=== PATIENT | female | born 1975 | race Caucasian/White ===

== ENCOUNTER 2021-01-18 21:16 | Emergency (ER) | payer BC ==
[2021-01-18] MEDS ORDERED: Sodium Chloride 0.9% 1000 ML 1,000 ML IV STA (21:46)
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
[2021-01-18 22:03] LABS: Absolute Neutrophil Ct (ANC) 7.43 (1.4-6.9); BASOPHIL % 0.2 % (0.0-0.4); Basophil (Absolute #) 0.02 (0-0.4); Eosinophil % 1.3 % (0.00-5.0); Eosinophil (Absolute #) 0.14 (0-0.5); Hematocrit 38.6 % (35-47); Hemoglobin 12.4 gm/dl (12.0-16.0); Lymphocyte (Absolute #) 2.47 (1.0-4.6); Lymphocytes % 22.8 % (24.0-44.0); Mean Cell Volume 91.7 fl (78-100); Mean Corpuscular Hemoglobin 29.5 pg (26-32); Mean Corpuscular Hgb Concent. 32.1 g/dl (32-36); Mean Platelet Volume 9.7 fl (7.5-11.0); Monocyte (Absolute #) 0.75 (0.0-1.3); Monocytes % 6.9 % (0.0-12.0); Neutrophil % 68.8 % (36.0-66.0); Platelet Count 256 K/mm3 (150-450); Red Blood Count 4.21 M/mm3 (4.1-5.4); Red Cell Distribution Width 13.9 % (11.5-14.0); White Blood Count 10.8 K/mm3 (4.0-10.5)
[2021-01-18] MEDS ORDERED: Sodium Chloride 0.9% 1000 ML 1,000 ML ONE (22:06)
[2021-01-18 22:16] LABS: ALBUMIN 3.9 g/dL (3.5-5.0); ALKALINE PHOSPHATASE 74 U/L (38-126); ANION GAP 11.5 MEQ/L (5-15); BLOOD UREA NITROGEN 17 mg/dL (7-17); CHLORIDE 101 mmol/L (98-107); Calcium 9.1 mg/dL (8.4-10.2); Carbon Dioxide 28 mmol/L (22-30); Creatinine 1 0.97 mg/dL (0.52-1.04); EST GLOMERULAR FILTRATION RATE > 60.0 ML/MIN; Glucose 115 mg/dL (74-106); LIPASE 33 U/L (23-300); Potassium 3.6 mmol/L (3.5-5.1); SGOT/AST 20 U/L (14-36); SGPT/ALT 19 U/L (0-35); SODIUM 137 mmol/L (137-145)
[2021-01-18 23:48] LABS: Appearance SLIGHTLY CLOUDY (CLEAR); Bilirubin NEGATIVE (NEGATIVE); Blood LARGE Ery/ul (0-5); Epithelial Cells RARE /HPF (FEW); Glucose NEGATIVE (NEGATIVE); Ketones NEGATIVE (NEGATIVE); Leukocyte Esterase TRACE (NEGATIVE); Mucus SLIGHT /HPF (NEGATIVE); Nitrite NEGATIVE (NEGATIVE); Protein,Urine Dip NEGATIVE (Negative); Specific Gravity 1.018 (1.005-1.025); Urobilinogen NEGATIVE mg/dL (0-1); WBC 0-2 /HPF (0-5)
[2021-01-19 00:16] VITALS: BP 148/88; PULSE 87
[2021-01-19 00:25] VITALS: O2SAT 98
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
== END 2021-01-19 00:44 | disposition home or self-care (01) ==
LOC: ED 21:16
DX: K86.9 Disease of pancreas, unspecified (principal); S29.011A Strain of muscle and tendon of front wall of thorax, initial encounter; S39.001A Unspecified injury of muscle, fascia and tendon of abdomen, initial encounter; S60.051A Contusion of right little finger without damage to nail, initial encounter; M79.644 Pain in right finger(s); R07.89 Other chest pain; V48.5XXA Car driver injured in noncollision transport accident in traffic accident, initial encounter
CPT/HCPCS: 36000; 36415; 70450; 71260; 72125; 73140; 74177; 80053; 81001; 81025; 83690; 84484; 85025; 87086; 93005; 96360; 99285

== ENCOUNTER 2021-04-07 06:36 | Day surgery (SDC) | payer BC ==
[2021-04-07] MEDS ORDERED: Lactated Ringers 1,000 ML IV SCH (07:00)
[2021-04-07] MEDS ORDERED: CEFAZOLIN 2 GM-D5W BAG** 2 GM/50 ML ML IV SCH (07:00)
[2021-04-07] MEDS ORDERED: DIPRIVAN 200 MG/20 ML IV ONE (08:25)
[2021-04-07] MEDS ORDERED: SUBLIMAZE 100 MCG/2 ML ONE ×2 (08:25→09:30)
[2021-04-07] MEDS ORDERED: Versed 2 MG/2 ML Injection ONE (08:25)
[2021-04-07] MEDS ORDERED: Zofran 4 MG/2 ML VIAL ONE (08:25)
[2021-04-07] MEDS ORDERED: Decadron 4 MG INJ ONE (08:37)
[2021-04-07 10:37] VITALS: PULSE 84
[2021-04-07 10:51] VITALS: BP 160/80; O2SAT 96
--- NOTE | 2021-04-08 08:31 | OP ---
SURGERY DATE/TIME: 04/07/2021 0838 PREOPERATIVE DIAGNOSIS: Menorrhagia. POSTOPERATIVE DIAGNOSIS: Menorrhagia. PROCEDURE: Hysteroscopy D&C with NovaSure ablation. SURGEON: Yovani Mukherjee D.O. KNOBBER: Venancio Cisneros surgical scrub technician. ANESTHESIA: General. ESTIMATED BLOOD LOSS: Minimal. COMPLICATIONS: None. INDICATIONS: The risks, benefits, indications and alternatives of the procedure were reviewed with the patient prior to procedure. The patient understood the risk of infection, bleeding, bowel injury, bladder injury, ureteral injury, uterine perforation, pelvic infection associated with the surgery and desires to have this surgery as a possible means to alleviate her current medical condition. DESCRIPTION OF PROCEDURE AND FINDINGS: At this point the patient is taken to the operating room, given general sedation, placed in dorsal lithotomy position, prepped and draped in the usual sterile fashion. A weighted speculum is then placed in the patient's vagina and the anterior lip of the cervix is grasped with a single tooth tenaculum. Endocervical dilators were advanced through the endocervical canal as a means to dilate the cervix and the uterus sounded approximately 10 cm. From this point a 5 mm hysteroscope was then placed in through the endocervical canal where visualization of the endometrial cavity appeared to be within normal limits with no gross abnormalities that was noted. From this point the hysteroscope was then removed and a curette was then placed into the fundus of the uterus and curettage was performed in all quadrants of the uterus retrieving a moderate amount of tissue. From this point hemostasis was obtained. From this point the NovaSure was then grasped and taken through the endocervical canal where a length of 6.5 cm was measured and was taken to the fundus of the uterus and retracted approximately 1 cm where it was engaged with a width of 3.1 cm. After engagement the instrument was turned on for an ablative time of 56 seconds. After completion of the ablation the NovaSure was then disengaged and removed from the uterine cavity without complication. From this point all instruments were removed from the patient's vaginal region. The patient was then out of the dorsal lithotomy position, was taken out of anesthesia and was then taken to the recovery room in stable condition. All instruments and laps were accounted for x2.
== END 2021-04-07 10:55 | disposition home or self-care (01) ==
LOC: SDC 06:36
PROVIDERS: ATTEND Obstetrics & Gynecology
DX: N92.0 Excessive and frequent menstruation with regular cycle (principal)
CPT/HCPCS: 84703; J0690; J1100; J2250; J2405; J2704; J3010